=== PATIENT | female | born 2000 | race Caucasian/White ===

== ENCOUNTER 2024-02-03 08:08 | Outpatient (CLI) | payer MEDICAID | END 2024-02-03 23:59 | disposition home or self-care (01) | LOC: RAD 08:08 | PROVIDERS: ATTEND Nurse Practitioner Obstetrics & Gynecology | DX: O09.92 Supervision of high risk pregnancy, unspecified, second trimester (principal); Z3A.15 15 weeks gestation of pregnancy | CPT/HCPCS: 76805 ==

== ENCOUNTER 2024-03-16 09:33 | Outpatient (CLI) | payer MEDICAID | END 2024-03-16 23:59 | disposition home or self-care (01) | LOC: RAD 09:33 | PROVIDERS: ATTEND Nurse Practitioner Obstetrics & Gynecology | DX: O09.92 Supervision of high risk pregnancy, unspecified, second trimester (principal); Z3A.20 20 weeks gestation of pregnancy | CPT/HCPCS: 76811 ==

== ENCOUNTER 2025-03-30 13:16 | Emergency (ER) | payer MEDICAID, SELFPAY ==
[~2025-03-30] VITALS: Ht 177.8 cm; Wt 84.3 kg
[2025-03-30 13:28] VITALS: BP 99/71; PULSE 84; TEMP 98.1; O2SAT 96
--- NOTE | 2025-03-30 13:54 | Physician Documentation ---
History of Present Illness ~ Chief Complaint: Abscess Stated Complaint: TOOTH ABCESS Time Seen by MD: 13:46 HPI This is a 24-year-old female who presents with one day of left rear lower dental pain without fever. Patient reports no difficulty breathing or swallowing. Tetanus Within 5 Years: No Medication Reconciliation Allergies: Coded Allergies: No Known Allergies (Unverified , 06/14/23) Scheduled Amox Tr/Potassium Clavulanate 875/125 MG (Augmentin 875/125 MG), 1 TAB PO BID Ibuprofen (Ibuprofen), 1 TAB PO Q8H Past Medical History Past Medical History: No Pertinent History Past Surgical History: no surgical history Alcohol Use: None Drug Use: none Review of Systems ROS Left rear lower dental pain as stated above in the HPI, otherwise all systems are reviewed and negative. Physical Exam Vital Signs: Temperature: 98.1, Source: Oral, Heart Rate: 84, Respiratory Rate: 16, BP: 99/71, Pulse Oximetry: 96, Weight: 84.300 Oxygen Flow Rate: 0 Physical Exam VITALS: Reviewed and as above. GENERAL: Alert, nontoxic appearing, no apparent distress. HEENT: Swelling and tenderness to gumline of right lower rear most molar no fluctuance, no discharge. No facial swelling, no submandibular swelling, no elevation of the tongue, uvula midline, no drooling. No cervical lymphadenopathy RESPIRATORY: No increased work of breathing, no respiratory distress, speaking in full clear sentences Progress Results/Orders Results/Orders Completed Orders - JOLIE KAUR [employer] Ketorolac Trometh 15mg/Ml Vial (Toradol (03/30/25 14:05) Amox Tr/Potassium Clavulanate (Augmentin (03/30/25 14:05) Vital Signs 03/30/25 03/30/25 13:28 14:14 Temp 98.1 Pulse 84 Resp 16 15 B/P (MAP) 99/71 Pulse Ox 96 O2 Flow Rate 0 Medical Decision Making Findings This well appearing 24-year-old female presented with dental pain to the gumline of left lower posterior molar. Based on history and physical exam I have low clinical suspicion for peritonsillar abscess, uvulitis, deep tissue space infection of the head/neck, or impending airway compromise. There was no submandibular swelling or elevation of the tongue, the uvula was midline, patient is able to swallow fluids and secretion without difficulty, there is no increased work of breathing or noisy breathing. Based on presentation I am concerned for odontogenic infection and antibiotic treatment with Augmentin is indicated. Pain control with non-narcotic medications is appropriate at this time. Patient is otherwise well-appearing vital signs stable patient is appropriate for outpatient follow up, patient advised that she must follow up as soon as possible with a dentist for definitive management. Patient provided return to care precautions. Patient verbalized understanding of follow up and return to care precautions. Differential Dx:Considerations: Include: Abscess, Bacteremia, Cellulitis, Other (Christian's angina, peritonsillar abscess, peritonsillar cellulitis or orbital cellulitis) Departure Disposition: HOME / SELF CARE / HOMELESS Impression: Primary Impression: Pain, dental Condition: Improved Discharge Instructions: Dental Abscess, [id number] Additional Instructions: You will need to follow up with a dentist as soon as possible, please take the prescribed antibiotics until they are gone, take the prescribed ibuprofen as needed for pain according to the prescribed directions, you may also take Tylenol as needed as directed by the [id number] packaging for pain. Please also follow up with your primary care provider in the next few days. Please return to the emergency department for any new or worsening concerning symptoms. Please do not take ibuprofen for the next 12 hours as you received a Toradol injection in the emergency department. Please take ibuprofen with food to avoid stomach upset. Referrals: NO PRIMARY CARE PROVIDER (PCP) Prescriptions Ibuprofen (Ibuprofen) 800 Mg Tablet 1 TAB PO Q8H for pain for 10 Days, #30 TAB 0 Refills Prov: JOLIE KAUR 03/30/25 Amox Tr/Potassium Clavulanate 875/125 MG (Augmentin 875/125 MG) 875 Mg-125 Mg Tablet 1 TAB PO BID, #14 TAB Prov: JOLIE KAUR 03/30/25 Education Educated: Patient Educated regarding: diagnosis, treatment, prognosis, need for follow up Signature Scribe Signature: No scribe Attestation: The note accurately reflects work and decisions made by me.DARNELL Tubbs 03/30/25 22:15 JOLIE KAUR Mar 30, 2025 13:54
[2025-03-30] MEDS ORDERED: AMOX-580 PO (13:57)
[2025-03-30] MEDS ORDERED: IBUP-1986 PO (13:57)
[2025-03-30] MEDS: amox tr/potassium clavulanate 875/125mg TAB PO ONE (14:13)
[2025-03-30 14:14] VITALS: RESP 15
[2025-03-30] MEDS: ketorolac trometh 15mg/ml vial 15 MG/ML ML IM ONE (14:14)
== END 2025-03-30 14:20 | disposition home or self-care (01) ==
LOC: ER 13:16
DX: K08.89 Other specified disorders of teeth and supporting structures (principal); Z79.899 Other long term (current) drug therapy
CPT/HCPCS: 96372; 99283; J1885